=== PATIENT | male | born 1995 | race African-American/Black ===

== ENCOUNTER 2024-12-30 20:39 | Emergency (ER) | payer BC, OTHER | END 2024-12-30 23:05 | LOC: CSHERS 20:39 | DX: B34.9 Viral infection, unspecified (principal); F17.210 Nicotine dependence, cigarettes, uncomplicated; Z55.6 Problems related to health literacy | CPT/HCPCS: 71045; 87428 ==

== ENCOUNTER 2025-02-04 01:37 | Emergency (ER) | payer BC, OTHER ==
[2025-02-04] MEDS ORDERED: Ketorolac Tromethamine 30 MG (1 mL) VIAL ONE (01:48)
== END 2025-02-04 01:54 | disposition home or self-care (01) ==
LOC: CSHERS 01:37
DX: K04.7 Periapical abscess without sinus (principal); K02.9 Dental caries, unspecified; F17.210 Nicotine dependence, cigarettes, uncomplicated
CPT/HCPCS: 96372; 99282; J1885